=== PATIENT | female | born 1990 | race Caucasian/White ===

== ENCOUNTER 2016-10-27 23:07 | Emergency (ER) | payer OTHER ==
[~2016-10-27 23:07] MED LIST: ADVIL200 M1 PO; ALBUTEROL17 GM INH
[2016-10-27] MEDS ORDERED: CENTRUM CHEWAB1 EACH PO (23:16)
[2016-10-27] MEDS ORDERED: BACTRIM DS TAB1 EAC2 PO (23:56)
== END 2016-10-28 00:13 ==
LOC: EDMED 23:07
DX: L72.0 Epidermal cyst (principal); Z98.890 Other specified postprocedural states